=== PATIENT | male | born 1985 | race Two or more races ===

== ENCOUNTER 2019-07-10 18:31 | Inpatient (IN) | payer MEDICAID ==
[~2019-07-10] VITALS: Ht 167.6 cm; Wt 104.8 kg
[2019-07-10] MEDS ORDERED: QUET200T PO (19:52)
[2019-07-10] MEDS ORDERED: RISP2TAB23 PO (19:52)
[2019-07-10] MEDS ORDERED: MIRT-89 PO (19:52)
[2019-07-10] MEDS ORDERED: LORazepam 2 MG TABLET PO PRN (20:15)
[2019-07-10] MEDS ORDERED: ZOLPIDEM TARTRATE 10 MG TABLET PO PRN (20:15)
[2019-07-10] MEDS ORDERED: HALOPERIDOL 5 MG TABLET PO PRN (20:15)
[2019-07-10 20:30] VITALS: BP 137/81
[2019-07-11 08:05] LABS: BASOPHILS % (AUTO) 0.4 % (0.0-2.0); EOSINOPHILS % (AUTO) 1.1 % (1.0-6.0); HEMATOCRIT 40.8 % (41-53); HEMOGLOBIN 13.4 g/dL (13.5-17.5); LYMPHOCYTES # (AUTO) 1.3 K/uL (1.0-4.8); LYMPHOCYTES % (AUTO) 13.8 % (22.0-44.0); MEAN CORPUSCULAR HEMOGLOBIN 26.7 pg (26.0-34.0); MEAN CORPUSCULAR HGB CONC 32.9 G/dL (31.0-37.0); MEAN CORPUSCULAR VOLUME 81 fL (80-100); MONOCYTES # (AUTO) 0.9 K/uL (0.1-1.0); MONOCYTES % (AUTO) 9.6 % (2.0-9.0); NEUTROPHILS % (AUTO) 75.1 % (40.0-70.0); PLATELET COUNT (AUTO) 361 K/uL (150-450); RED BLOOD CELL COUNT(AUTO) 5.03 MIL/uL (4.50-5.90)
[2019-07-11 08:21] VITALS: BP 122/66
[2019-07-11 08:28] LABS: HEMOGLOBIN A1C 5.8 % (3.8-5.6)
[2019-07-11 08:42] LABS: ALANINE AMINOTRANSFERASE 41 U/L (12-78); ALBUMIN 3.8 g/dL (3.4-5.0); ALKALINE PHOSPHATASE 86 U/L (46-116); ANION GAP 11 mmol/L (8-16); ASPARTATE AMINOTRANSFERASE 43 U/L (15-37); BILIRUBIN,TOTAL 0.5 mg/dL (0.1-1.0); CARBON DIOXIDE 26 mmol/L (22-29); CHLORIDE 105 mmol/L (98-107); CHOLESTEROL 161 mg/dL (131-200); CREATININE 0.87 mg/dL (0.60-1.30); FREE T4 (FREE THYROXINE) 1.19 ng/dL (0.76-1.46); GLOMERULAR FILTR. RATE CALC > 60 mL/min (>60); GLUCOSE,RANDOM 99 mg/dL (70-110); POTASSIUM 4.1 mmol/L (3.5-5.1); SODIUM SERUM 142 mmol/L (136-145); THYROID STIMULATING HORMONE 3.53 uIU/mL (0.36-3.74); TOTAL PROTEIN, SERUM 7.6 g/dL (6.4-8.2); TRIGLYCERIDES 84 mg/dL (15-150); UREA NITROGEN, BLOOD 13 mg/dL (7-18)
[2019-07-11] MEDS ORDERED: ONDANSETRON HCL 4 MG TABLET PO PRN (08:45)
[2019-07-11] MEDS ORDERED: MAG HYDROX/AL HYDROX/SIMETH ES 30 ML SUSPENSION UDCUP PO PRN (08:45)
[2019-07-11] MEDS ORDERED: CloNIDine HCL 0.1 MG TABLET PO PRN (08:45)
[2019-07-11] MEDS ORDERED: IBUPROFEN 400 MG TABLET PO PRN (08:45)
[2019-07-11] MEDS ORDERED: GuaiFENesin/D-METHORPHAN [SUGAR-FREE] 200-20MG/10 ML SYRUP UDCUP PO PRN (08:45)
[2019-07-11] MEDS ORDERED: MAGNESIUM HYDROXIDE SUSPENSION 30 ML UDCUP PO PRN (08:45)
[2019-07-11] MEDS ORDERED: ALBUTEROL SULFATE HFA 90 MCG/PUFF 8 GM INHALER IH PRN (08:45)
[2019-07-11] MEDS ORDERED: LOPERAMIDE HCL 2 MG CAPSULE PO PRN (08:45)
[2019-07-11] MEDS ORDERED: NICOTINE 14 MG/24 HOUR PATCH TD PRN (08:45)
[2019-07-11] MEDS ORDERED: PETROLATUM,WHITE 28 GM JELLY TP PRN (08:45)
[2019-07-11] MEDS ORDERED: ACETAMINOPHEN 325 MG TABLET PO PRN (08:45)
[2019-07-11] MEDS ORDERED: DOCUSATE SODIUM 100 MG CAPSULE PO PRN (08:45)
[2019-07-11 08:52] LABS: CHOL/HDL RATIO 5.2 (4.2-7.3); HDL CHOLESTEROL 31 mg/dL (40-60); LDL CHOL (CALC.) 113 mg/dL (0-130)
[2019-07-11] MEDS: QUEtiapine FUMARATE 25 MG TABLET PO SCH ×2 (13:11→16:45)
[2019-07-11 15:56] VITALS: BP 132/66
[2019-07-11] MEDS: MIRTAZAPINE 15 MG TABLET PO SCH (21:49)
[2019-07-11] MEDS: RisperiDONE 2 MG TABLET PO SCH (21:49)
[2019-07-12 08:15] VITALS: BP 129/73
[2019-07-12] MEDS: QUEtiapine FUMARATE 25 MG TABLET PO SCH ×2 (08:47→16:10)
[2019-07-12 16:13] VITALS: BP 134/73
[2019-07-12] MEDS: RisperiDONE 2 MG TABLET PO SCH (20:46)
[2019-07-12] MEDS: MIRTAZAPINE 15 MG TABLET PO SCH (20:46)
[2019-07-13 05:44] VITALS: BP 141/78
[2019-07-13 08:20] VITALS: BP 125/90
[2019-07-13] MEDS: QUEtiapine FUMARATE 25 MG TABLET PO SCH (08:29)
[2019-07-13] MEDS ORDERED: RISP2TAB23 PO (11:10)
[2019-07-13] MEDS ORDERED: QUET25TA PO (11:10)
== END 2019-07-13 11:40 | disposition home or self-care (01) | DRG 750 ==
LOC: B3A 20:11
PROVIDERS: ADMIT Psychiatry & Neurology Psychiatry; ATTEND Psychiatry & Neurology Psychiatry
DX: F20.9 Schizophrenia, unspecified (principal); R45.850 Homicidal ideations; R45.851 Suicidal ideations; D64.9 Anemia, unspecified; F10.10 Alcohol abuse, uncomplicated; K59.00 Constipation, unspecified; Z91.5 Personal history of self-harm
CPT/HCPCS: 83036; 84439; 84443

== ENCOUNTER 2020-07-29 08:42 | Inpatient (IN) | payer BC, MEDICAID ==
[~2020-07-29] VITALS: Ht 167.6 cm; Wt 117.3 kg
[~2020-07-29 08:42] MED LIST: MIRT-89 PO; QUET25TA PO; RISP2TAB45 PO
[2020-07-29] MEDS ORDERED: SERT-158 PO (08:53)
[2020-07-29] MEDS ORDERED: OLAN2.5T29 PO (08:53)
[2020-07-29] MEDS ORDERED: QUET25TA PO (08:53)
[2020-07-29] MEDS ORDERED: LITH300C3 PO (08:53)
[2020-07-29 09:13] LABS: COVID AG,FIA SOURCE NASOPHARYNGEAL
[2020-07-29 09:15] LABS: BASOPHILS % (AUTO) 0.6 % (0.0-2.0); EOSINOPHILS % (AUTO) 0.4 % (1.0-6.0); HEMATOCRIT 41.7 % (41-53); HEMOGLOBIN 13.3 g/dL (13.5-17.5); LYMPHOCYTES # (AUTO) 1.9 K/uL (1.0-4.8); LYMPHOCYTES % (AUTO) 11.4 % (22.0-44.0); MEAN CORPUSCULAR HEMOGLOBIN 25.6 pg (26.0-34.0); MEAN CORPUSCULAR HGB CONC 31.9 G/dL (31.0-37.0); MEAN CORPUSCULAR VOLUME 80 fL (80-100); MONOCYTES # (AUTO) 1.4 K/uL (0.1-1.0); MONOCYTES % (AUTO) 8.2 % (2.0-9.0); NEUTROPHILS # (AUTO) 13.2 K/uL (1.8-7.7); NEUTROPHILS % (AUTO) 79.4 % (40.0-70.0); PLATELET COUNT (AUTO) 592 K/uL (150-450); RED BLOOD CELL COUNT(AUTO) 5.19 MIL/uL (4.50-5.90)
[2020-07-29 09:24] LABS: ANION GAP 14 mmol/L (8-16); CALCIUM, TOTAL 9.6 mg/dL (8.8-10.5); CARBON DIOXIDE 21 mmol/L (22-29); CHLORIDE 106 mmol/L (98-107); CREATININE 0.95 mg/dL (0.60-1.30); GLOMERULAR FILTR. RATE CALC > 60 mL/min (>60); GLUCOSE,RANDOM 86 mg/dL (70-110); POTASSIUM 3.7 mmol/L (3.5-5.1); SODIUM SERUM 141 mmol/L (136-145); UREA NITROGEN, BLOOD 6 mg/dL (7-18)
[2020-07-29 09:30] LABS: ALANINE AMINOTRANSFERASE 50 U/L (12-78); ALBUMIN 4.3 g/dL (3.4-5.0); ALKALINE PHOSPHATASE 117 U/L (46-116); ASPARTATE AMINOTRANSFERASE 22 U/L (15-37); BILIRUBIN,TOTAL 0.4 mg/dL (0.1-1.0); TOTAL PROTEIN, SERUM 8.6 g/dL (6.4-8.2)
[2020-07-29 09:32] LABS: AMPHET/METH SCREEN,URINE NEGATIVE (NEGATIVE); BARBITURATE SCREEN, URINE NEGATIVE (NEGATIVE); BENZODIAZEPINES SCREEN,URINE NEGATIVE (NEGATIVE); CANNABINOID SCREEN,URINE NEGATIVE (NEGATIVE); COCAINE SCREEN,URINE NEGATIVE (NEGATIVE); METHADONE SCREEN, URINE NEGATIVE (NEGATIVE); OPIATE SCREEN,URINE NEGATIVE (NEGATIVE)
[2020-07-29 09:33] LABS: PHENCYCLIDINE SCREEN,URINE NEGATIVE (NEGATIVE)
[2020-07-29] MEDS ORDERED: ZOLPIDEM TARTRATE 10 MG TABLET PO PRN (10:00)
[2020-07-29] MEDS ORDERED: LORazepam 2 MG TABLET PO PRN (10:00)
[2020-07-29] MEDS: HALOPERIDOL 5 MG TABLET PO PRN ×2 (13:12→17:30)
[2020-07-29 13:41] VITALS: BP 137/76
[2020-07-29 16:10] VITALS: BP 133/70
[2020-07-30] VITALS: BP 127/61
[2020-07-30] MEDS ORDERED: LOPERAMIDE HCL 2 MG CAPSULE PO PRN (07:30)
[2020-07-30] MEDS ORDERED: CloNIDine HCL 0.1 MG TABLET PO PRN (07:30)
[2020-07-30] MEDS ORDERED: DOCUSATE SODIUM 100 MG CAPSULE PO PRN (07:30)
[2020-07-30] MEDS ORDERED: NICOTINE 14 MG/24 HOUR PATCH TD PRN (07:30)
[2020-07-30] MEDS ORDERED: MAGNESIUM HYDROXIDE SUSPENSION 30 ML UDCUP PO PRN (07:30)
[2020-07-30] MEDS ORDERED: GuaiFENesin/D-METHORPHAN [SUGAR-FREE] 200-20MG/10 ML SYRUP UDCUP PO PRN (07:30)
[2020-07-30] MEDS ORDERED: ONDANSETRON HCL 4 MG TABLET PO PRN (07:30)
[2020-07-30] MEDS ORDERED: IBUPROFEN 400 MG TABLET PO PRN (07:30)
[2020-07-30] MEDS ORDERED: MAG HYDROX/AL HYDROX/SIMETH ES 30 ML SUSPENSION UDCUP PO PRN (07:30)
[2020-07-30] MEDS ORDERED: PETROLATUM,WHITE 28 GM JELLY TP PRN (07:30)
[2020-07-30] MEDS ORDERED: ALBUTEROL SULFATE HFA 90 MCG/PUFF 8 GM INHALER IH PRN (07:30)
[2020-07-30] MEDS ORDERED: ACETAMINOPHEN 325 MG TABLET PO PRN (07:30)
[2020-07-30 08:13] VITALS: BP 107/60
[2020-07-30 09:15] LABS: CHOL/HDL RATIO 5.1 (4.2-7.3)
[2020-07-30] MEDS ORDERED: LEVO100 PO (12:27)
[2020-07-30] MEDS: SERTRALINE HCL 100 MG TABLET PO SCH (13:17)
[2020-07-30] MEDS: LITHIUM CARBONATE 300 MG CAPSULE PO SCH (13:17)
[2020-07-30 16:27] VITALS: BP 128/76
[2020-07-30] MEDS: LITHIUM CARBONATE 600 MG CAPSULE PO SCH (20:50)
[2020-07-30] MEDS: QUEtiapine FUMARATE 300 MG TABLET PO SCH (20:50)
[2020-07-31 00:23] VITALS: BP 121/69
[2020-07-31 08:42] VITALS: BP 120/65
[2020-07-31] MEDS: SERTRALINE HCL 100 MG TABLET PO SCH (09:09)
[2020-07-31] MEDS: LITHIUM CARBONATE 300 MG CAPSULE PO SCH (09:09)
[2020-07-31 16:20] VITALS: BP 133/80
[2020-07-31] MEDS: QUEtiapine FUMARATE 300 MG TABLET PO SCH (20:26)
[2020-07-31] MEDS: LITHIUM CARBONATE 600 MG CAPSULE PO SCH (20:26)
[2020-08-01 00:32] VITALS: BP 120/72
[2020-08-01 08:05] VITALS: BP 110/66
[2020-08-01] MEDS: SERTRALINE HCL 100 MG TABLET PO SCH (08:55)
[2020-08-01] MEDS: LITHIUM CARBONATE 300 MG CAPSULE PO SCH (08:55)
[2020-08-01] MEDS ORDERED: LITH600C5 PO (11:01)
[2020-08-01] MEDS ORDERED: LITH300C3 PO (11:01)
[2020-08-01] MEDS ORDERED: QUET300T2 PO (11:02)
[2020-08-01] MEDS ORDERED: SERT-162 PO (11:02)
== END 2020-08-01 11:50 | disposition home or self-care (01) | DRG 750 ==
LOC: EMS 08:49 → B2S 10:37
PROVIDERS: ADMIT Psychiatry & Neurology Child & Adolescent Psychiatry; ATTEND Psychiatry & Neurology Child & Adolescent Psychiatry
DX: F25.1 Schizoaffective disorder, depressive type (principal); R45.851 Suicidal ideations; Z68.41 Body mass index [BMI] 40.0-44.9, adult; D72.829 Elevated white blood cell count, unspecified; Z20.822 Contact with and (suspected) exposure to COVID-19; E03.9 Hypothyroidism, unspecified; E66.9 Obesity, unspecified; F10.10 Alcohol abuse, uncomplicated; F41.9 Anxiety disorder, unspecified; Z79.899 Other long term (current) drug therapy
CPT/HCPCS: 80053; 80061; 85025; 99285; G0480

== ENCOUNTER 2020-09-12 03:40 | Inpatient (IN) | payer BC, MEDICAID ==
[~2020-09-12] VITALS: Ht 167.6 cm; Wt 115.2 kg
[~2020-09-12 03:40] MED LIST changes: +LITH300C3 PO; +LITH600C5 PO; -MIRT-89 PO; -QUET25TA PO; +QUET300T2 PO; -RISP2TAB45 PO; +SERT-162 PO
[2020-09-12] MEDS ORDERED: ZOLPIDEM TARTRATE 10 MG TABLET PO PRN (04:45)
[2020-09-12 06:03] LABS: BASOPHILS % (AUTO) 0.8 % (0.0-2.0); EOSINOPHILS % (AUTO) 0.5 % (1.0-6.0); HEMATOCRIT 39.7 % (41-53); HEMOGLOBIN 12.7 g/dL (13.5-17.5); LYMPHOCYTES # (AUTO) 1.7 K/uL (1.0-4.8); LYMPHOCYTES % (AUTO) 14.9 % (22.0-44.0); MEAN CORPUSCULAR HEMOGLOBIN 25.1 pg (26.0-34.0); MEAN CORPUSCULAR HGB CONC 31.8 G/dL (31.0-37.0); MEAN CORPUSCULAR VOLUME 79 fL (80-100); MONOCYTES % (AUTO) 8.6 % (2.0-9.0); NEUTROPHILS # (AUTO) 8.7 K/uL (1.8-7.7); NEUTROPHILS % (AUTO) 75.2 % (40.0-70.0); PLATELET COUNT (AUTO) 480 K/uL (150-450); RED BLOOD CELL COUNT(AUTO) 5.03 MIL/uL (4.50-5.90); RED CELL DISTRIBUTION WIDTH 17.2 % (11.5-14.5)
[2020-09-12 06:04] LABS: COVID AG,FIA SOURCE NASOPHARYNGEAL
[2020-09-12 06:12] LABS: ANION GAP 11 mmol/L (8-16); CALCIUM, TOTAL 9.2 mg/dL (8.8-10.5); CARBON DIOXIDE 24 mmol/L (22-29); CHLORIDE 104 mmol/L (98-107); CREATININE 0.75 mg/dL (0.60-1.30); GLOMERULAR FILTR. RATE CALC > 60 mL/min (>60); GLUCOSE,RANDOM 100 mg/dL (70-110); POTASSIUM 3.8 mmol/L (3.5-5.1); SODIUM SERUM 139 mmol/L (136-145); UREA NITROGEN, BLOOD 9 mg/dL (7-18)
[2020-09-12 06:17] LABS: ALANINE AMINOTRANSFERASE 69 U/L (12-78); ALBUMIN 4.3 g/dL (3.4-5.0); ALKALINE PHOSPHATASE 86 U/L (46-116); ASPARTATE AMINOTRANSFERASE 30 U/L (15-37); BILIRUBIN,TOTAL 0.3 mg/dL (0.1-1.0); TOTAL PROTEIN, SERUM 8.3 g/dL (6.4-8.2)
[2020-09-12 06:55] LABS: APPEARANCE,URINE TURBID (CLEAR); BILIRUBIN,URINE NEGATIVE (NEGATIVE); GLUCOSE, URINE (UA) NEGATIVE (NEGATIVE); KETONES,URINE TRACE mg/dL (NEGATIVE); LEUKOCYTE ESTERASE ,URINE NEGATIVE (NEGATIVE); NITRATE,URINE NEGATIVE (NEGATIVE); OCCULT BLOOD,URINE NEGATIVE (NEGATIVE); PH,URINE 5.5 (5.0-8.0); PROTEIN,URINE NEGATIVE (NEGATIVE); UROBILINOGEN,URINE 0.2 mg/dL (<=1.0)
[2020-09-12 07:00] LABS: AMPHET/METH SCREEN,URINE NEGATIVE (NEGATIVE); BARBITURATE SCREEN, URINE NEGATIVE (NEGATIVE); BENZODIAZEPINES SCREEN,URINE NEGATIVE (NEGATIVE); CANNABINOID SCREEN,URINE NEGATIVE (NEGATIVE); COCAINE SCREEN,URINE POSITIVE (NEGATIVE); METHADONE SCREEN, URINE NEGATIVE (NEGATIVE); OPIATE SCREEN,URINE NEGATIVE (NEGATIVE)
[2020-09-12 07:01] LABS: PHENCYCLIDINE SCREEN,URINE NEGATIVE (NEGATIVE)
[2020-09-12] MEDS: LORazepam 2 MG TABLET PO PRN ×2 (09:57→20:26)
[2020-09-12] MEDS: HALOPERIDOL 5 MG TABLET PO PRN (09:57)
[2020-09-12 10:30] VITALS: BP 139/83
[2020-09-12] MEDS: HALOPERIDOL 10 MG TABLET PO SCH (16:57)
[2020-09-12 17:37] VITALS: BP 112/67
[2020-09-12] MEDS: LITHIUM CARBONATE 600 MG CAPSULE PO SCH (20:26)
[2020-09-13 05:15] VITALS: BP 132/64
[2020-09-13] MEDS ORDERED: PETROLATUM,WHITE 28 GM JELLY TP PRN (07:15)
[2020-09-13] MEDS ORDERED: MAGNESIUM HYDROXIDE SUSPENSION 30 ML UDCUP PO PRN (07:15)
[2020-09-13] MEDS ORDERED: CloNIDine HCL 0.1 MG TABLET PO PRN (07:15)
[2020-09-13] MEDS ORDERED: MAG HYDROX/AL HYDROX/SIMETH ES 30 ML SUSPENSION UDCUP PO PRN (07:15)
[2020-09-13] MEDS ORDERED: NICOTINE 14 MG/24 HOUR PATCH TD PRN (07:15)
[2020-09-13] MEDS ORDERED: ALBUTEROL SULFATE HFA 90 MCG/PUFF 8 GM INHALER IH PRN (07:15)
[2020-09-13] MEDS ORDERED: LOPERAMIDE HCL 2 MG CAPSULE PO PRN (07:15)
[2020-09-13] MEDS ORDERED: ACETAMINOPHEN 325 MG TABLET PO PRN (07:15)
[2020-09-13] MEDS ORDERED: DOCUSATE SODIUM 100 MG CAPSULE PO PRN (07:15)
[2020-09-13] MEDS ORDERED: GuaiFENesin/D-METHORPHAN [SUGAR-FREE] 200-20MG/10 ML SYRUP UDCUP PO PRN (07:15)
[2020-09-13] MEDS ORDERED: ONDANSETRON HCL 4 MG TABLET PO PRN (07:15)
[2020-09-13 08:23] VITALS: BP 135/70
[2020-09-13] MEDS: LITHIUM CARBONATE 300 MG CAPSULE PO SCH (08:38)
[2020-09-13] MEDS: IBUPROFEN 400 MG TABLET PO PRN (08:38)
[2020-09-13] MEDS: BENZTROPINE MESYLATE 1 MG TABLET PO SCH (08:39)
[2020-09-13] MEDS: HALOPERIDOL 10 MG TABLET PO SCH ×2 (08:39→20:39)
[2020-09-13] MEDS: HALOPERIDOL 5 MG TABLET PO PRN (10:25)
[2020-09-13] MEDS: LORazepam 2 MG TABLET PO PRN ×2 (10:25→15:54)
[2020-09-13 16:15] VITALS: BP 118/65
[2020-09-13] MEDS: LITHIUM CARBONATE 600 MG CAPSULE PO SCH (20:39)
[2020-09-14] MEDS: LORazepam 2 MG TABLET PO PRN ×2 (08:20→16:59)
[2020-09-14] MEDS: HALOPERIDOL 5 MG TABLET PO PRN ×2 (08:20→17:01)
[2020-09-14] MEDS: IBUPROFEN 400 MG TABLET PO PRN (08:20)
[2020-09-14] MEDS: BENZTROPINE MESYLATE 1 MG TABLET PO SCH (08:53)
[2020-09-14] MEDS: LITHIUM CARBONATE 300 MG CAPSULE PO SCH (08:53)
[2020-09-14] MEDS: HALOPERIDOL 10 MG TABLET PO SCH ×2 (08:53→20:50)
[2020-09-14] MEDS: LITHIUM CARBONATE 600 MG CAPSULE PO SCH (20:51)
[2020-09-15] MEDS: HALOPERIDOL 5 MG TABLET PO PRN (08:25)
[2020-09-15] MEDS: IBUPROFEN 400 MG TABLET PO PRN (08:25)
[2020-09-15] MEDS: LORazepam 2 MG TABLET PO PRN (08:25)
[2020-09-15] MEDS: HALOPERIDOL 10 MG TABLET PO SCH (08:52)
[2020-09-15] MEDS: BENZTROPINE MESYLATE 1 MG TABLET PO SCH (08:52)
[2020-09-15] MEDS: LITHIUM CARBONATE 300 MG CAPSULE PO SCH (08:52)
[2020-09-15] MEDS ORDERED: BENZ1TAB10 PO (10:32)
[2020-09-15] MEDS ORDERED: HALO10 PO (10:33)
== END 2020-09-15 11:00 | disposition home or self-care (01) | DRG 750 ==
LOC: EMS 03:43 → B3A 08:00
DX: F25.1 Schizoaffective disorder, depressive type (principal); R45.851 Suicidal ideations; F14.10 Cocaine abuse, uncomplicated; Z20.822 Contact with and (suspected) exposure to COVID-19; F41.9 Anxiety disorder, unspecified; F10.10 Alcohol abuse, uncomplicated; Y90.9 Presence of alcohol in blood, level not specified; F19.10 Other psychoactive substance abuse, uncomplicated; D72.829 Elevated white blood cell count, unspecified; D47.3 Essential (hemorrhagic) thrombocythemia; E66.9 Obesity, unspecified; D64.9 Anemia, unspecified; Z91.5 Personal history of self-harm; Z68.41 Body mass index [BMI] 40.0-44.9, adult
CPT/HCPCS: 80053; 80178; 81003; 85025; 99285; G0480

== ENCOUNTER 2020-12-13 21:03 | Inpatient (IN) | payer BC, MEDICAID ==
[~2020-12-13] VITALS: Ht 167.6 cm; Wt 111.6 kg
[~2020-12-13 21:03] MED LIST changes: +BENZ1TAB10 PO; +HALO10 PO; -QUET300T2 PO; -SERT-162 PO
[2020-12-13 21:52] LABS: COVID AG,FIA SOURCE NASOPHARYNGEAL
[2020-12-13 21:54] LABS: BASOPHILS % (AUTO) 0.7 % (0.0-2.0); EOSINOPHILS % (AUTO) 0.3 % (1.0-6.0); HEMATOCRIT 41.7 % (41-53); HEMOGLOBIN 13.5 g/dL (13.5-17.5); LYMPHOCYTES % (AUTO) 15.4 % (22.0-44.0); MEAN CORPUSCULAR HGB CONC 32.5 G/dL (31.0-37.0); MEAN CORPUSCULAR VOLUME 80 fL (80-100); MONOCYTES # (AUTO) 0.6 K/uL (0.1-1.0); MONOCYTES % (AUTO) 4.4 % (2.0-9.0); NEUTROPHILS % (AUTO) 79.2 % (40.0-70.0); PLATELET COUNT (AUTO) 561 K/uL (150-450); RED BLOOD CELL COUNT(AUTO) 5.21 MIL/uL (4.50-5.90); RED CELL DISTRIBUTION WIDTH 18.5 % (11.5-14.5)
[2020-12-13] MEDS ORDERED: OLANZapine 5 MG RAPDIS TABLET PO PRN (22:00)
[2020-12-13] MEDS ORDERED: LORazepam 2 MG TABLET PO PRN (22:00)
[2020-12-13] MEDS ORDERED: ZOLPIDEM TARTRATE 10 MG TABLET PO PRN (22:00)
[2020-12-13 22:04] LABS: ANION GAP 13 mmol/L (8-16); CALCIUM, TOTAL 9.6 mg/dL (8.8-10.5); CARBON DIOXIDE 25 mmol/L (22-29); CHLORIDE 106 mmol/L (98-107); CREATININE 0.87 mg/dL (0.60-1.30); GLOMERULAR FILTR. RATE CALC > 60 mL/min (>60); GLUCOSE,RANDOM 102 mg/dL (70-110); SODIUM SERUM 144 mmol/L (136-145); UREA NITROGEN, BLOOD 9 mg/dL (7-18)
[2020-12-13 22:18] LABS: ALANINE AMINOTRANSFERASE 71 U/L (12-78); ALBUMIN 4.3 g/dL (3.4-5.0); ALKALINE PHOSPHATASE 106 U/L (46-116); ASPARTATE AMINOTRANSFERASE 29 U/L (15-37); BILIRUBIN,TOTAL 0.3 mg/dL (0.1-1.0); TOTAL PROTEIN, SERUM 8.8 g/dL (6.4-8.2)
[2020-12-13 22:20] LABS: LITHIUM < 0.20 mmol/L (0.60-1.20)
[2020-12-13 22:29] LABS: APPEARANCE,URINE CLEAR (CLEAR); BILIRUBIN,URINE NEGATIVE (NEGATIVE); GLUCOSE, URINE (UA) NEGATIVE (NEGATIVE); KETONES,URINE TRACE mg/dL (NEGATIVE); LEUKOCYTE ESTERASE ,URINE NEGATIVE (NEGATIVE); NITRATE,URINE NEGATIVE (NEGATIVE); OCCULT BLOOD,URINE NEGATIVE (NEGATIVE); PROTEIN,URINE NEGATIVE (NEGATIVE); UROBILINOGEN,URINE 0.2 mg/dL (<=1.0)
[2020-12-13 22:32] LABS: AMPHET/METH SCREEN,URINE NEGATIVE (NEGATIVE); BARBITURATE SCREEN, URINE NEGATIVE (NEGATIVE); BENZODIAZEPINES SCREEN,URINE NEGATIVE (NEGATIVE); CANNABINOID SCREEN,URINE NEGATIVE (NEGATIVE); COCAINE SCREEN,URINE POSITIVE (NEGATIVE); METHADONE SCREEN, URINE NEGATIVE (NEGATIVE); OPIATE SCREEN,URINE NEGATIVE (NEGATIVE)
[2020-12-13 22:33] LABS: PHENCYCLIDINE SCREEN,URINE NEGATIVE (NEGATIVE)
[2020-12-14 00:39] LABS: CHOL/HDL RATIO 5.7 (4.2-7.3); CHOLESTEROL 198 mg/dL (131-200); HDL CHOLESTEROL 35 mg/dL (40-60); LDL CHOL (CALC.) 146 mg/dL (0-130); TRIGLYCERIDES 86 mg/dL (15-150)
[2020-12-14 09:34] VITALS: BP 157/97
[2020-12-14 09:57] VITALS: BP 157/97
[2020-12-14] MEDS ORDERED: PALIPERIDONE PALMITATE 234 MG/1.5 ML SYRINGE IM ONE (11:15)
[2020-12-14] MEDS ORDERED: GuaiFENesin/D-METHORPHAN [SUGAR-FREE] 200-20MG/10 ML SYRUP UDCUP PO PRN (11:15)
[2020-12-14] MEDS ORDERED: MAGNESIUM HYDROXIDE SUSPENSION 30 ML UDCUP PO PRN (11:15)
[2020-12-14] MEDS ORDERED: ACETAMINOPHEN 325 MG TABLET PO PRN (11:15)
[2020-12-14] MEDS ORDERED: TUBERCULIN, PURIFIED PROTEIN DERIVATIVE 5 TU/0.1 ML SYRINGE ID ONE (11:15)
[2020-12-14] MEDS ORDERED: LOPERAMIDE HCL 2 MG CAPSULE PO PRN (11:15)
[2020-12-14] MEDS ORDERED: MAG HYDROX/AL HYDROX/SIMETH ES 30 ML SUSPENSION UDCUP PO PRN (11:15)
[2020-12-14] MEDS ORDERED: HydrOXYzine PAMOATE 50 MG CAPSULE PO PRN (11:15)
[2020-12-14] MEDS ORDERED: PROMETHAZINE HCL 25 MG TABLET PO PRN (11:15)
[2020-12-14] MEDS ORDERED: QUEtiapine FUMARATE 100 MG TABLET PO PRN (13:30)
[2020-12-14] MEDS: THIAMINE 100 MG TABLET PO SCH (16:35)
[2020-12-14] MEDS: QUEtiapine FUMARATE 200 MG TABLET PO SCH (20:16)
[2020-12-14] MEDS: MELATONIN 5 MG TABLET PO SCH (20:16)
[2020-12-14] MEDS: LITHIUM CARBONATE 600 MG CAPSULE PO SCH (20:17)
[2020-12-14] MEDS ORDERED: OLANZapine 5 MG RAPDIS TABLET PO SCH (21:00)
[2020-12-15 07:15] LABS: BASOPHILS % (AUTO) 0.9 % (0.0-2.0); EOSINOPHILS % (AUTO) 2.6 % (1.0-6.0); HEMATOCRIT 39.7 % (41-53); HEMOGLOBIN 12.7 g/dL (13.5-17.5); LYMPHOCYTES # (AUTO) 1.8 K/uL (1.0-4.8); LYMPHOCYTES % (AUTO) 23.1 % (22.0-44.0); MEAN CORPUSCULAR HEMOGLOBIN 25.7 pg (26.0-34.0); MEAN CORPUSCULAR HGB CONC 31.9 G/dL (31.0-37.0); MEAN CORPUSCULAR VOLUME 81 fL (80-100); MONOCYTES # (AUTO) 0.8 K/uL (0.1-1.0); MONOCYTES % (AUTO) 9.7 % (2.0-9.0); NEUTROPHILS # (AUTO) 4.9 K/uL (1.8-7.7); NEUTROPHILS % (AUTO) 63.7 % (40.0-70.0); PLATELET COUNT (AUTO) 409 K/uL (150-450); RED BLOOD CELL COUNT(AUTO) 4.93 MIL/uL (4.50-5.90); RED CELL DISTRIBUTION WIDTH 18.7 % (11.5-14.5)
[2020-12-15 08:15] LABS: CHOL/HDL RATIO 5.4 (4.2-7.3); THYROID STIMULATING HORMONE 3.68 uIU/mL (0.36-3.74)
[2020-12-15 08:50] VITALS: BP 115/63
[2020-12-15] MEDS ORDERED: FLUoxetine HCL 20 MG CAPSULE PO SCH (09:00)
[2020-12-15] MEDS: FOLIC ACID 1 MG TABLET PO SCH (09:02)
[2020-12-15] MEDS: LITHIUM CARBONATE 300 MG CAPSULE PO SCH (09:02)
[2020-12-15] MEDS: MULTIVITAMINS WITH MINERALS, THERAPEUTIC TABLET PO SCH (09:02)
[2020-12-15] MEDS: OMEGA-3/DHA/EPA/FISH OIL 1,000 MG CAPSULE PO SCH (09:02)
[2020-12-15] MEDS: NALTREXONE HCL 50 MG TABLET PO SCH (09:03)
[2020-12-15] MEDS: SERTRALINE HCL 100 MG TABLET PO SCH (09:03)
[2020-12-15] MEDS: THIAMINE 100 MG TABLET PO SCH ×2 (09:04→16:23)
[2020-12-15] MEDS ORDERED: INFLUENZA VIRUS VACCINE QVS 2021-22 (6MO+)/PF 60 MCG/0.5 ML SYRINGE IM. ONE (10:45)
[2020-12-15] MEDS: LITHIUM CARBONATE 600 MG CAPSULE PO SCH (20:10)
[2020-12-15] MEDS: MELATONIN 5 MG TABLET PO SCH (20:11)
[2020-12-15] MEDS: QUEtiapine FUMARATE 200 MG TABLET PO SCH (20:11)
[2020-12-15] MEDS ORDERED: QUEtiapine FUMARATE 200 MG TABLET PO SCH (21:00)
[2020-12-15] MEDS ORDERED: QUEtiapine FUMARATE 100 MG TABLET PO PRN (21:00)
[2020-12-16 08:57] VITALS: BP 115/61
[2020-12-16] MEDS: SERTRALINE HCL 100 MG TABLET PO SCH (09:49)
[2020-12-16] MEDS: THIAMINE 100 MG TABLET PO SCH ×2 (09:49→16:59)
[2020-12-16] MEDS: OMEGA-3/DHA/EPA/FISH OIL 1,000 MG CAPSULE PO SCH (09:49)
[2020-12-16] MEDS: QUEtiapine FUMARATE 25 MG TABLET PO SCH ×3 (09:49→16:59)
[2020-12-16] MEDS: NALTREXONE HCL 50 MG TABLET PO SCH (09:49)
[2020-12-16] MEDS: MULTIVITAMINS WITH MINERALS, THERAPEUTIC TABLET PO SCH (09:49)
[2020-12-16] MEDS: LITHIUM CARBONATE 300 MG CAPSULE PO SCH (09:49)
[2020-12-16] MEDS: FOLIC ACID 1 MG TABLET PO SCH (09:49)
[2020-12-16 17:03] VITALS: BP 140/70
[2020-12-16] MEDS: MELATONIN 5 MG TABLET PO SCH (21:01)
[2020-12-16] MEDS: QUEtiapine FUMARATE 200 MG TABLET PO SCH (21:01)
[2020-12-16] MEDS: LITHIUM CARBONATE 600 MG CAPSULE PO SCH (21:01)
[2020-12-17 08:00] VITALS: BP 120/66
[2020-12-17] MEDS: FOLIC ACID 1 MG TABLET PO SCH (08:38)
[2020-12-17] MEDS: NALTREXONE HCL 50 MG TABLET PO SCH (08:38)
[2020-12-17] MEDS: SERTRALINE HCL 100 MG TABLET PO SCH (08:38)
[2020-12-17] MEDS: OMEGA-3/DHA/EPA/FISH OIL 1,000 MG CAPSULE PO SCH (08:38)
[2020-12-17] MEDS: THIAMINE 100 MG TABLET PO SCH ×2 (08:39→16:18)
[2020-12-17] MEDS: QUEtiapine FUMARATE 25 MG TABLET PO SCH ×3 (08:39→16:18)
[2020-12-17] MEDS: MULTIVITAMINS WITH MINERALS, THERAPEUTIC TABLET PO SCH (08:39)
[2020-12-17] MEDS: LITHIUM CARBONATE 300 MG CAPSULE PO SCH (10:05)
[2020-12-17 16:33] VITALS: BP 128/78
[2020-12-17] MEDS: MELATONIN 5 MG TABLET PO SCH (20:10)
[2020-12-17] MEDS: LITHIUM CARBONATE 600 MG CAPSULE PO SCH (20:10)
[2020-12-17] MEDS: QUEtiapine FUMARATE 200 MG TABLET PO SCH (20:10)
[2020-12-18] MEDS: NALTREXONE HCL 50 MG TABLET PO SCH (08:56)
[2020-12-18] MEDS: LITHIUM CARBONATE 300 MG CAPSULE PO SCH (08:56)
[2020-12-18] MEDS: MULTIVITAMINS WITH MINERALS, THERAPEUTIC TABLET PO SCH (08:56)
[2020-12-18] MEDS: SERTRALINE HCL 100 MG TABLET PO SCH (08:56)
[2020-12-18] MEDS: OMEGA-3/DHA/EPA/FISH OIL 1,000 MG CAPSULE PO SCH (08:56)
[2020-12-18] MEDS: FOLIC ACID 1 MG TABLET PO SCH (08:57)
[2020-12-18] MEDS: THIAMINE 100 MG TABLET PO SCH ×2 (08:57→16:51)
[2020-12-18] MEDS: QUEtiapine FUMARATE 25 MG TABLET PO SCH ×3 (08:57→16:51)
[2020-12-18] MEDS ORDERED: PALIPERIDONE PALMITATE 156 MG/ML SYRINGE IM ONE (09:00)
[2020-12-18 09:50] VITALS: BP 100/63
[2020-12-18 16:00] VITALS: BP 140/89
[2020-12-18] MEDS: LITHIUM CARBONATE 600 MG CAPSULE PO SCH (20:29)
[2020-12-18] MEDS: MELATONIN 5 MG TABLET PO SCH (20:29)
[2020-12-18] MEDS: QUEtiapine FUMARATE 300 MG TABLET PO SCH (20:29)
[2020-12-19] MEDS: MULTIVITAMINS WITH MINERALS, THERAPEUTIC TABLET PO SCH (08:47)
[2020-12-19] MEDS: OMEGA-3/DHA/EPA/FISH OIL 1,000 MG CAPSULE PO SCH (08:47)
[2020-12-19] MEDS: LITHIUM CARBONATE 300 MG CAPSULE PO SCH (08:47)
[2020-12-19] MEDS: THIAMINE 100 MG TABLET PO SCH ×2 (08:47→16:07)
[2020-12-19] MEDS: FOLIC ACID 1 MG TABLET PO SCH (08:47)
[2020-12-19] MEDS: NALTREXONE HCL 50 MG TABLET PO SCH (08:47)
[2020-12-19] MEDS: SERTRALINE HCL 100 MG TABLET PO SCH (08:47)
[2020-12-19] MEDS: QUEtiapine FUMARATE 25 MG TABLET PO SCH ×4 (08:49→20:23)
[2020-12-19 08:55] LABS: COVID AG,FIA SOURCE NASOPHARYNGEAL
[2020-12-19 16:19] VITALS: BP 123/72
[2020-12-19] MEDS: MELATONIN 5 MG TABLET PO SCH (20:23)
[2020-12-19] MEDS: LITHIUM CARBONATE 600 MG CAPSULE PO SCH (20:24)
[2020-12-19] MEDS: QUEtiapine FUMARATE 300 MG TABLET PO SCH (20:24)
[2020-12-20] MEDS: OMEGA-3/DHA/EPA/FISH OIL 1,000 MG CAPSULE PO SCH (08:28)
[2020-12-20] MEDS: SERTRALINE HCL 100 MG TABLET PO SCH (08:28)
[2020-12-20] MEDS: FOLIC ACID 1 MG TABLET PO SCH (08:29)
[2020-12-20] MEDS: MULTIVITAMINS WITH MINERALS, THERAPEUTIC TABLET PO SCH (08:29)
[2020-12-20] MEDS: NALTREXONE HCL 50 MG TABLET PO SCH (08:29)
[2020-12-20] MEDS: THIAMINE 100 MG TABLET PO SCH ×2 (08:29→16:07)
[2020-12-20] MEDS: LITHIUM CARBONATE 300 MG CAPSULE PO SCH (08:29)
[2020-12-20 09:21] VITALS: BP 104/59
[2020-12-20] MEDS: QUEtiapine FUMARATE 25 MG TABLET PO SCH ×2 (12:50→16:07)
[2020-12-20 16:48] VITALS: BP 140/90
[2020-12-20] MEDS: LITHIUM CARBONATE 600 MG CAPSULE PO SCH (20:19)
[2020-12-20] MEDS: MELATONIN 5 MG TABLET PO SCH (20:19)
[2020-12-20] MEDS: QUEtiapine FUMARATE 300 MG TABLET PO SCH (20:19)
[2020-12-21] MEDS: NALTREXONE HCL 50 MG TABLET PO SCH (08:19)
[2020-12-21] MEDS: THIAMINE 100 MG TABLET PO SCH ×2 (08:19→16:21)
[2020-12-21] MEDS: OMEGA-3/DHA/EPA/FISH OIL 1,000 MG CAPSULE PO SCH (08:19)
[2020-12-21] MEDS: MULTIVITAMINS WITH MINERALS, THERAPEUTIC TABLET PO SCH (08:19)
[2020-12-21] MEDS: FOLIC ACID 1 MG TABLET PO SCH (08:19)
[2020-12-21] MEDS: QUEtiapine FUMARATE 25 MG TABLET PO SCH ×3 (08:20→16:21)
[2020-12-21] MEDS: SERTRALINE HCL 100 MG TABLET PO SCH (08:20)
[2020-12-21] MEDS: LITHIUM CARBONATE 300 MG CAPSULE PO SCH (08:20)
[2020-12-21 08:39] VITALS: BP 130/87
[2020-12-21 16:15] VITALS: BP 132/71
[2020-12-21] MEDS: LITHIUM CARBONATE 600 MG CAPSULE PO SCH (20:20)
[2020-12-21] MEDS: MELATONIN 5 MG TABLET PO SCH (20:20)
[2020-12-21] MEDS: QUEtiapine FUMARATE 300 MG TABLET PO SCH (20:20)
[2020-12-22] MEDS: OMEGA-3/DHA/EPA/FISH OIL 1,000 MG CAPSULE PO SCH (08:53)
[2020-12-22] MEDS: LITHIUM CARBONATE 300 MG CAPSULE PO SCH (08:53)
[2020-12-22] MEDS: NALTREXONE HCL 50 MG TABLET PO SCH (08:53)
[2020-12-22] MEDS: FOLIC ACID 1 MG TABLET PO SCH (08:53)
[2020-12-22] MEDS: SERTRALINE HCL 100 MG TABLET PO SCH (08:53)
[2020-12-22] MEDS: THIAMINE 100 MG TABLET PO SCH ×2 (08:53→16:17)
[2020-12-22] MEDS: QUEtiapine FUMARATE 25 MG TABLET PO SCH ×3 (08:53→16:17)
[2020-12-22] MEDS: MULTIVITAMINS WITH MINERALS, THERAPEUTIC TABLET PO SCH (08:53)
[2020-12-22 09:14] VITALS: BP 130/66
[2020-12-22 11:20] VITALS: BP 110/74
[2020-12-22 16:00] VITALS: BP 118/95
[2020-12-22] MEDS: LITHIUM CARBONATE 600 MG CAPSULE PO SCH (20:08)
[2020-12-22] MEDS: MELATONIN 5 MG TABLET PO SCH (20:08)
[2020-12-22] MEDS: QUEtiapine FUMARATE 300 MG TABLET PO SCH (20:09)
[2020-12-23] MEDS: FOLIC ACID 1 MG TABLET PO SCH (08:39)
[2020-12-23] MEDS: THIAMINE 100 MG TABLET PO SCH ×2 (08:39→16:20)
[2020-12-23] MEDS: QUEtiapine FUMARATE 25 MG TABLET PO SCH ×3 (08:39→16:20)
[2020-12-23] MEDS: LITHIUM CARBONATE 300 MG CAPSULE PO SCH (08:39)
[2020-12-23] MEDS: MULTIVITAMINS WITH MINERALS, THERAPEUTIC TABLET PO SCH (08:40)
[2020-12-23] MEDS: NALTREXONE HCL 50 MG TABLET PO SCH (08:40)
[2020-12-23] MEDS: SERTRALINE HCL 100 MG TABLET PO SCH (08:40)
[2020-12-23] MEDS: OMEGA-3/DHA/EPA/FISH OIL 1,000 MG CAPSULE PO SCH (08:40)
[2020-12-23 08:50] VITALS: BP 128/66
[2020-12-23 16:00] VITALS: BP 166/95
[2020-12-23] MEDS: MELATONIN 5 MG TABLET PO SCH (20:35)
[2020-12-23] MEDS: QUEtiapine FUMARATE 300 MG TABLET PO SCH (20:35)
[2020-12-23] MEDS: LITHIUM CARBONATE 600 MG CAPSULE PO SCH (20:35)
[2020-12-24] MEDS: QUEtiapine FUMARATE 25 MG TABLET PO SCH ×3 (08:28→16:41)
[2020-12-24] MEDS: MULTIVITAMINS WITH MINERALS, THERAPEUTIC TABLET PO SCH (08:28)
[2020-12-24] MEDS: NALTREXONE HCL 50 MG TABLET PO SCH (08:28)
[2020-12-24] MEDS: LITHIUM CARBONATE 300 MG CAPSULE PO SCH (08:28)
[2020-12-24] MEDS: FOLIC ACID 1 MG TABLET PO SCH (08:28)
[2020-12-24] MEDS: SERTRALINE HCL 100 MG TABLET PO SCH (08:28)
[2020-12-24] MEDS: THIAMINE 100 MG TABLET PO SCH (08:28)
[2020-12-24] MEDS: OMEGA-3/DHA/EPA/FISH OIL 1,000 MG CAPSULE PO SCH (08:28)
[2020-12-24 08:51] VITALS: BP 133/62
[2020-12-24 16:00] VITALS: BP 132/72
[2020-12-24] MEDS ORDERED: QUET300T19 PO (16:20)
[2020-12-24] MEDS ORDERED: QUET25TA36 PO (16:20)
[2020-12-24] MEDS ORDERED: SERT-440 PO (16:20)
[2020-12-24] MEDS ORDERED: LITH300C3 PO (16:20)
[2020-12-24] MEDS ORDERED: OMEG-135 PO (16:20)
[2020-12-24] MEDS ORDERED: NALT50TA PO (16:20)
[2020-12-24] MEDS ORDERED: MELA5TAB40 PO (16:20)
== END 2020-12-24 17:00 | disposition home or self-care (01) | DRG 750 ==
LOC: EMS 21:03 → 3EI 12-14 07:15
PROVIDERS: ADMIT Psychiatry & Neurology Psychiatry; ATTEND Psychiatry & Neurology Psychiatry
DX: F25.1 Schizoaffective disorder, depressive type (principal); R45.851 Suicidal ideations; F13.20 Sedative, hypnotic or anxiolytic dependence, uncomplicated; Z59.00 Homelessness unspecified; E03.9 Hypothyroidism, unspecified; F17.210 Nicotine dependence, cigarettes, uncomplicated; F41.0 Panic disorder [episodic paroxysmal anxiety]; T43.4X6A Underdosing of butyrophenone and thiothixene neuroleptics, initial encounter; J44.9 Chronic obstructive pulmonary disease, unspecified; F12.20 Cannabis dependence, uncomplicated; F15.20 Other stimulant dependence, uncomplicated; Z20.822 Contact with and (suspected) exposure to COVID-19; T44.3X6A Underdosing of other parasympatholytics [anticholinergics and antimuscarinics] and spasmolytics, initial encounter; Y92.89 Other specified places as the place of occurrence of the external cause; Z55.9 Problems related to education and literacy, unspecified; Z59.9 Problem related to housing and economic circumstances, unspecified; Z63.9 Problem related to primary support group, unspecified; Z65.3 Problems related to other legal circumstances; Z79.899 Other long term (current) drug therapy; Z91.51 Personal history of suicidal behavior
CPT/HCPCS: 80053; 80061; 80178; 81003; 83036; 84439; 84443; 85025; 86592; 90686; 99285; G0480; Q9967

== ENCOUNTER 2022-01-06 21:19 | Inpatient (IN) | payer MEDICAID ==
[~2022-01-06] VITALS: Ht 167.6 cm; Wt 106.4 kg
[~2022-01-06 21:19] MED LIST changes: -BENZ1TAB10 PO; -HALO10 PO; +MELA5TAB40 PO; +NALT50TA PO; +OMEG-135 PO; +QUET25TA36 PO; +QUET300T19 PO; +SERT-440 PO
[2022-01-07] VITALS (8 sets, daily range): BP systolic 119–144; BP diastolic 68–95
[2022-01-07] MEDS ORDERED: HALOPERIDOL 10 MG TABLET PO PRN (05:30)
[2022-01-07] MEDS ORDERED: LORazepam 2 MG TABLET PO PRN ×2 (05:30→11:30)
[2022-01-07] MEDS ORDERED: INFLUENZA VIRUS VACCINE QVS 2022-23 (6MO+)/PF 60 MCG/0.5 ML SYRINGE IM. ONE (05:45)
[2022-01-07] MEDS ORDERED: PNEUMOCOCCAL VACCINE POLYVALENT 0.5 ML VIAL [PPSV23] IM. ONE (05:45)
[2022-01-07] MEDS ORDERED: LEVO100 PO (10:19)
[2022-01-07] MEDS ORDERED: SERT-162 PO (10:24)
[2022-01-07] MEDS ORDERED: QUET300T2 PO (10:24)
[2022-01-07] MEDS ORDERED: LISI-894 PO (10:24)
[2022-01-07] MEDS ORDERED: LITH300CRT PO (10:24)
[2022-01-07] MEDS ORDERED: GuaiFENesin/D-METHORPHAN [SUGAR-FREE] 200-20MG/10 ML SYRUP UDCUP PO PRN ×2 (11:30→14:30)
[2022-01-07] MEDS ORDERED: CYANOCOBALAMIN 1,000 MCG/ML VIAL IM ONE (11:30)
[2022-01-07] MEDS ORDERED: LOPERAMIDE HCL 2 MG CAPSULE PO PRN ×2 (11:30→14:30)
[2022-01-07] MEDS ORDERED: HydrOXYzine PAMOATE 50 MG CAPSULE PO PRN (11:30)
[2022-01-07] MEDS: OMEGA-3/DHA/EPA/FISH OIL 1,000 MG CAPSULE PO SCH (12:38)
[2022-01-07] MEDS: MULTIVITAMINS WITH MINERALS, THERAPEUTIC TABLET PO SCH (12:38)
[2022-01-07] MEDS: FOLIC ACID 1 MG TABLET PO SCH (12:38)
[2022-01-07] MEDS ORDERED: MAGNESIUM HYDROXIDE SUSPENSION 30 ML UDCUP PO PRN ×2 (13:45→14:30)
[2022-01-07] MEDS ORDERED: DOCUSATE SODIUM 100 MG CAPSULE PO PRN (14:30)
[2022-01-07] MEDS ORDERED: ONDANSETRON HCL 4 MG TABLET PO PRN (14:30)
[2022-01-07] MEDS ORDERED: MAG HYDROX/AL HYDROX/SIMETH ES 30 ML SUSPENSION UDCUP PO PRN (14:30)
[2022-01-07] MEDS ORDERED: CloNIDine HCL 0.1 MG TABLET PO PRN (14:30)
[2022-01-07] MEDS ORDERED: ACETAMINOPHEN 325 MG TABLET PO PRN (14:30)
[2022-01-07] MEDS ORDERED: PETROLATUM,WHITE 28 GM JELLY TP PRN (14:30)
[2022-01-07] MEDS ORDERED: ALBUTEROL SULFATE HFA 90 MCG/PUFF 8 GM INHALER IH PRN (14:30)
[2022-01-07] MEDS ORDERED: IBUPROFEN 400 MG TABLET PO PRN (14:30)
[2022-01-07] MEDS ORDERED: NICOTINE 14 MG/24 HOUR PATCH TD PRN (14:30)
[2022-01-07] MEDS: LITHIUM CARBONATE 450 MG ER TABLET PO SCH (16:55)
[2022-01-07] MEDS: THIAMINE 100 MG TABLET PO SCH (16:55)
[2022-01-07] MEDS: QUEtiapine FUMARATE 300 MG TABLET PO SCH (20:03)
[2022-01-08] VITALS (8 sets, daily range): BP systolic 100–136; BP diastolic 58–88
[2022-01-08] MEDS: LEVOTHYROXINE SODIUM 100 MCG TABLET PO SCH (06:44)
[2022-01-08] MEDS ORDERED: LORazepam 2 MG TABLET PO PRN (07:00)
[2022-01-08] MEDS: MULTIVITAMINS WITH MINERALS, THERAPEUTIC TABLET PO SCH (09:23)
[2022-01-08] MEDS: LITHIUM CARBONATE 450 MG ER TABLET PO SCH ×3 (09:23→17:12)
[2022-01-08] MEDS: LORazepam 2 MG TABLET PO SCH ×4 (09:23→21:39)
[2022-01-08] MEDS: OMEGA-3/DHA/EPA/FISH OIL 1,000 MG CAPSULE PO SCH (09:23)
[2022-01-08] MEDS: THIAMINE 100 MG TABLET PO SCH ×2 (09:23→17:12)
[2022-01-08] MEDS: FOLIC ACID 1 MG TABLET PO SCH (09:24)
[2022-01-08] MEDS: LISINOPRIL 20 MG TABLET PO SCH (09:24)
[2022-01-08] MEDS: SERTRALINE HCL 100 MG TABLET PO SCH (09:24)
[2022-01-08] MEDS: QUEtiapine FUMARATE 300 MG TABLET PO SCH (21:39)
[2022-01-09] MEDS: LEVOTHYROXINE SODIUM 100 MCG TABLET PO SCH (06:10)
[2022-01-09 07:56] LABS: GLUCOMETER DEV NAME(LOC) POC.BV
[2022-01-09 08:39] VITALS: BP 132/74
[2022-01-09] MEDS: MULTIVITAMINS WITH MINERALS, THERAPEUTIC TABLET PO SCH (08:58)
[2022-01-09] MEDS: LISINOPRIL 20 MG TABLET PO SCH (08:58)
[2022-01-09] MEDS: LITHIUM CARBONATE 450 MG ER TABLET PO SCH ×3 (08:59→16:26)
[2022-01-09] MEDS: FOLIC ACID 1 MG TABLET PO SCH (08:59)
[2022-01-09] MEDS: LORazepam 2 MG TABLET PO SCH ×4 (08:59→20:21)
[2022-01-09] MEDS: SERTRALINE HCL 100 MG TABLET PO SCH (08:59)
[2022-01-09] MEDS: OMEGA-3/DHA/EPA/FISH OIL 1,000 MG CAPSULE PO SCH (08:59)
[2022-01-09] MEDS: THIAMINE 100 MG TABLET PO SCH ×2 (09:03→16:26)
[2022-01-09 17:13] VITALS: BP 115/64
[2022-01-09 20:03] VITALS: BP 120/65
[2022-01-09 20:05] VITALS: BP 120/65
[2022-01-09] MEDS: QUEtiapine FUMARATE 300 MG TABLET PO SCH (20:17)
[2022-01-10] MEDS: LEVOTHYROXINE SODIUM 100 MCG TABLET PO SCH (06:37)
[2022-01-10] MEDS ORDERED: LORazepam 1 MG TABLET PO PRN (07:00)
[2022-01-10 08:28] VITALS: BP 136/73
[2022-01-10] MEDS: OMEGA-3/DHA/EPA/FISH OIL 1,000 MG CAPSULE PO SCH (09:08)
[2022-01-10] MEDS: LORazepam 1 MG TABLET PO SCH ×4 (09:08→20:30)
[2022-01-10] MEDS: THIAMINE 100 MG TABLET PO SCH ×2 (09:08→16:34)
[2022-01-10] MEDS: LISINOPRIL 20 MG TABLET PO SCH (09:08)
[2022-01-10] MEDS: SERTRALINE HCL 100 MG TABLET PO SCH (09:08)
[2022-01-10] MEDS: MULTIVITAMINS WITH MINERALS, THERAPEUTIC TABLET PO SCH (09:08)
[2022-01-10] MEDS: LITHIUM CARBONATE 450 MG ER TABLET PO SCH ×3 (09:08→16:34)
[2022-01-10] MEDS: FOLIC ACID 1 MG TABLET PO SCH (09:08)
[2022-01-10 12:18] VITALS: BP 136/75
[2022-01-10] MEDS: QUEtiapine FUMARATE 300 MG TABLET PO SCH (20:30)
[2022-01-10 20:56] VITALS: BP 139/70
[2022-01-11] MEDS: LEVOTHYROXINE SODIUM 100 MCG TABLET PO SCH (06:56)
[2022-01-11] MEDS ORDERED: LORazepam 1 MG TABLET PO PRN (07:00)
[2022-01-11 08:10] VITALS: BP 123/74
[2022-01-11 08:45] VITALS: BP 123/74
[2022-01-11] MEDS: THIAMINE 100 MG TABLET PO SCH ×2 (08:53→16:36)
[2022-01-11] MEDS: OMEGA-3/DHA/EPA/FISH OIL 1,000 MG CAPSULE PO SCH (08:53)
[2022-01-11] MEDS: MULTIVITAMINS WITH MINERALS, THERAPEUTIC TABLET PO SCH (08:53)
[2022-01-11] MEDS: LITHIUM CARBONATE 450 MG ER TABLET PO SCH ×3 (08:53→16:37)
[2022-01-11] MEDS: FOLIC ACID 1 MG TABLET PO SCH (08:53)
[2022-01-11] MEDS: SERTRALINE HCL 100 MG TABLET PO SCH (08:54)
[2022-01-11] MEDS: LISINOPRIL 20 MG TABLET PO SCH (08:54)
[2022-01-11 16:26] LABS: GLUCOMETER DEV NAME(LOC) POC.BV
[2022-01-11 20:18] VITALS: BP 125/83
[2022-01-11] MEDS: QUEtiapine FUMARATE 300 MG TABLET PO SCH (20:32)
[2022-01-11 20:42] VITALS: BP 125/83
[2022-01-12] MEDS: LEVOTHYROXINE SODIUM 100 MCG TABLET PO SCH (06:26)
[2022-01-12 09:13] VITALS: BP 135/72
[2022-01-12 09:15] VITALS: BP 135/72
[2022-01-12] MEDS: MULTIVITAMINS WITH MINERALS, THERAPEUTIC TABLET PO SCH (09:42)
[2022-01-12] MEDS: OMEGA-3/DHA/EPA/FISH OIL 1,000 MG CAPSULE PO SCH (09:42)
[2022-01-12] MEDS: THIAMINE 100 MG TABLET PO SCH ×2 (09:42→16:32)
[2022-01-12] MEDS: LISINOPRIL 20 MG TABLET PO SCH (09:42)
[2022-01-12] MEDS: SERTRALINE HCL 100 MG TABLET PO SCH (09:42)
[2022-01-12] MEDS: FOLIC ACID 1 MG TABLET PO SCH (09:42)
[2022-01-12] MEDS: LITHIUM CARBONATE 450 MG ER TABLET PO SCH ×3 (09:42→16:32)
[2022-01-12 15:26] LABS: GLUCOMETER DEV NAME(LOC) POC.BV
[2022-01-12 16:51] LABS: GLUCOMETER DEV NAME(LOC) POC.BV
[2022-01-12] MEDS: QUEtiapine FUMARATE 300 MG TABLET PO SCH (20:34)
[2022-01-12 20:36] VITALS: BP 123/68
[2022-01-13] MEDS: LEVOTHYROXINE SODIUM 100 MCG TABLET PO SCH (06:40)
[2022-01-13 08:59] VITALS: BP 116/66
[2022-01-13] MEDS: LISINOPRIL 20 MG TABLET PO SCH (09:12)
[2022-01-13] MEDS: OMEGA-3/DHA/EPA/FISH OIL 1,000 MG CAPSULE PO SCH (09:12)
[2022-01-13] MEDS: THIAMINE 100 MG TABLET PO SCH ×2 (09:12→16:46)
[2022-01-13] MEDS: MULTIVITAMINS WITH MINERALS, THERAPEUTIC TABLET PO SCH (09:12)
[2022-01-13] MEDS: LITHIUM CARBONATE 450 MG ER TABLET PO SCH ×3 (09:12→16:46)
[2022-01-13] MEDS: FOLIC ACID 1 MG TABLET PO SCH (09:13)
[2022-01-13] MEDS: SERTRALINE HCL 100 MG TABLET PO SCH (09:13)
[2022-01-13 20:00] VITALS: BP 132/85
[2022-01-13] MEDS: QUEtiapine FUMARATE 300 MG TABLET PO SCH (20:30)
[2022-01-14] MEDS: LEVOTHYROXINE SODIUM 100 MCG TABLET PO SCH (06:18)
[2022-01-14 08:14] VITALS: BP 118/72
[2022-01-14] MEDS: LITHIUM CARBONATE 450 MG ER TABLET PO SCH ×3 (09:36→16:48)
[2022-01-14] MEDS: LISINOPRIL 20 MG TABLET PO SCH (09:36)
[2022-01-14] MEDS: MULTIVITAMINS WITH MINERALS, THERAPEUTIC TABLET PO SCH (09:36)
[2022-01-14] MEDS: SERTRALINE HCL 100 MG TABLET PO SCH (09:36)
[2022-01-14] MEDS: THIAMINE 100 MG TABLET PO SCH ×2 (09:36→16:48)
[2022-01-14] MEDS: FOLIC ACID 1 MG TABLET PO SCH (09:36)
[2022-01-14] MEDS: OMEGA-3/DHA/EPA/FISH OIL 1,000 MG CAPSULE PO SCH (09:36)
[2022-01-14] MEDS: QUEtiapine FUMARATE 300 MG TABLET PO SCH (20:31)
[2022-01-14 21:02] VITALS: BP 125/73
[2022-01-15] MEDS: LEVOTHYROXINE SODIUM 100 MCG TABLET PO SCH (06:44)
[2022-01-15 09:36] VITALS: BP 119/64
[2022-01-15] MEDS: SERTRALINE HCL 100 MG TABLET PO SCH (09:38)
[2022-01-15] MEDS: LITHIUM CARBONATE 450 MG ER TABLET PO SCH ×3 (09:38→16:25)
[2022-01-15] MEDS: FOLIC ACID 1 MG TABLET PO SCH (09:38)
[2022-01-15] MEDS: LISINOPRIL 20 MG TABLET PO SCH (09:38)
[2022-01-15] MEDS: OMEGA-3/DHA/EPA/FISH OIL 1,000 MG CAPSULE PO SCH (09:38)
[2022-01-15] MEDS: MULTIVITAMINS WITH MINERALS, THERAPEUTIC TABLET PO SCH (09:38)
[2022-01-15] MEDS: THIAMINE 100 MG TABLET PO SCH ×2 (09:39→16:26)
[2022-01-15 20:10] VITALS: BP 136/85
[2022-01-15] MEDS: QUEtiapine FUMARATE 300 MG TABLET PO SCH (20:35)
[2022-01-16] MEDS: LEVOTHYROXINE SODIUM 100 MCG TABLET PO SCH (06:21)
[2022-01-16 08:07] VITALS: BP 124/70
[2022-01-16] MEDS: MULTIVITAMINS WITH MINERALS, THERAPEUTIC TABLET PO SCH (11:08)
[2022-01-16] MEDS: LITHIUM CARBONATE 450 MG ER TABLET PO SCH ×3 (11:08→18:17)
[2022-01-16] MEDS: FOLIC ACID 1 MG TABLET PO SCH (11:08)
[2022-01-16] MEDS: SERTRALINE HCL 100 MG TABLET PO SCH (11:08)
[2022-01-16] MEDS: OMEGA-3/DHA/EPA/FISH OIL 1,000 MG CAPSULE PO SCH (11:08)
[2022-01-16] MEDS: LISINOPRIL 20 MG TABLET PO SCH (11:08)
[2022-01-16] MEDS: THIAMINE 100 MG TABLET PO SCH ×2 (11:08→16:44)
[2022-01-16] MEDS ORDERED: LITH450CRT PO (18:55)
[2022-01-16 20:27] VITALS: BP 117/71
[2022-01-16] MEDS: QUEtiapine FUMARATE 300 MG TABLET PO SCH (20:27)
[2022-01-17] MEDS: ZOLPIDEM TARTRATE 10 MG TABLET PO PRN ×2 (01:03→01:04)
[2022-01-17] MEDS ORDERED: QUET300T2 PO (04:55)
[2022-01-17] MEDS ORDERED: OMEG-135 PO (04:55)
[2022-01-17] MEDS ORDERED: LEVO100 PO (04:55)
[2022-01-17] MEDS ORDERED: SERT-162 PO (04:55)
[2022-01-17] MEDS ORDERED: LITH450CRT PO (04:55)
[2022-01-17] MEDS ORDERED: LISI-894 PO (04:55)
[2022-01-17] MEDS: LEVOTHYROXINE SODIUM 100 MCG TABLET PO SCH (06:38)
== END 2022-01-17 09:31 | disposition home or self-care (01) | DRG 750 ==
LOC: B2S 01-07 01:30
PROVIDERS: ADMIT Psychiatry & Neurology Psychiatry; ATTEND Psychiatry & Neurology Psychiatry
DX: F25.0 Schizoaffective disorder, bipolar type (principal); E11.9 Type 2 diabetes mellitus without complications; R45.851 Suicidal ideations; E03.9 Hypothyroidism, unspecified; Z20.822 Contact with and (suspected) exposure to COVID-19; E78.5 Hyperlipidemia, unspecified; F10.20 Alcohol dependence, uncomplicated; F14.10 Cocaine abuse, uncomplicated; I10 Essential (primary) hypertension; Y90.6 Blood alcohol level of 120-199 mg/100 ml; Z79.899 Other long term (current) drug therapy; Z81.8 Family history of other mental and behavioral disorders; Z91.51 Personal history of suicidal behavior
CPT/HCPCS: 80178; J3420

== ENCOUNTER 2023-10-05 22:20 | Inpatient (IN) | payer MEDICAID, OTHER ==
[~2023-10-05] VITALS: Ht 167.6 cm; Wt 104.8 kg
[~2023-10-05 22:20] MED LIST changes: +LEVO100 PO; +LISI-894 PO; -LITH300C3 PO; +LITH450T25 PO; -LITH600C5 PO; -MELA5TAB40 PO; -NALT50TA PO; -QUET25TA36 PO; -QUET300T19 PO; +QUET300T2 PO; +SERT-162 PO; -SERT-440 PO
[2023-10-06 00:50] LABS: COVID AG,FIA SOURCE NASAL SWAB
[2023-10-06 01:04] LABS: BASOPHILS % (AUTO) 0.6 % (0.0-2.0); EOSINOPHILS % (AUTO) 1.8 % (1.0-6.0); HEMATOCRIT 40.5 % (41-53); LYMPHOCYTES # (AUTO) 2.7 K/uL (1.0-4.8); LYMPHOCYTES % (AUTO) 26.7 % (22.0-44.0); MEAN CORPUSCULAR HEMOGLOBIN 25.2 pg (26.0-34.0); MEAN CORPUSCULAR HGB CONC 32.1 G/dL (31.0-37.0); MEAN CORPUSCULAR VOLUME 79 fL (80-100); MONOCYTES # (AUTO) 0.9 K/uL (0.1-1.0); MONOCYTES % (AUTO) 8.5 % (2.0-9.0); NEUTROPHILS # (AUTO) 6.4 K/uL (1.8-7.7); NEUTROPHILS % (AUTO) 62.4 % (40.0-70.0); PLATELET COUNT (AUTO) 425 K/uL (150-450); RED BLOOD CELL COUNT(AUTO) 5.15 MIL/uL (4.50-5.90); RED CELL DISTRIBUTION WIDTH 17.8 % (11.5-14.5); WHITE BLOOD COUNT (AUTO) 10.2 K/uL (4.5-11.0)
[2023-10-06 01:08] LABS: ANION GAP 12 mmol/L (8-16); CALCIUM, TOTAL 8.8 mg/dL (8.8-10.5); CARBON DIOXIDE 24 mmol/L (22-29); CHLORIDE 102 mmol/L (98-107); CREATININE 1.15 mg/dL (0.60-1.30); GLOMERULAR FILTR. RATE CALC > 60 mL/min (>60); GLUCOSE,RANDOM 83 mg/dL (70-110); SARS-COV2 (COVID) ANTIGEN,FIA Negative (Negative); SODIUM SERUM 138 mmol/L (136-145); UREA NITROGEN, BLOOD 8 mg/dL (7-18)
[2023-10-06 01:15] LABS: ALCOHOL, BLOOD (SERUM) 29 mg/dL (0-10)
[2023-10-06] MEDS ORDERED: ZOLPIDEM TARTRATE 10 MG TABLET PO PRN (05:00)
[2023-10-06] MEDS ORDERED: HALOPERIDOL 5 MG TABLET PO PRN (05:00)
[2023-10-06] MEDS ORDERED: LORazepam 2 MG TABLET PO PRN (05:00)
[2023-10-06 05:16] VITALS: BP 118/66; PULSE 78; RESP 18; TEMP 97.6; O2SAT 99
[2023-10-06 05:18] VITALS: BP 118/66; PULSE 78; RESP 18; TEMP 97.6; O2SAT 99
[2023-10-06 08:39] VITALS: BP 121/76; PULSE 84; RESP 17; TEMP 97.4; O2SAT 96
[2023-10-06] MEDS: QUEtiapine FUMARATE 200 MG TABLET PO SCH (13:14)
[2023-10-06] MEDS: SERTRALINE HCL 100 MG TABLET PO SCH (13:14)
[2023-10-06] MEDS ORDERED: DOCUSATE SODIUM 100 MG CAPSULE PO PRN (14:30)
[2023-10-06] MEDS ORDERED: CloNIDine HCL 0.1 MG TABLET PO PRN (14:30)
[2023-10-06] MEDS ORDERED: GuaiFENesin/D-METHORPHAN [SUGAR-FREE] 200-20MG/10 ML SYRUP UDCUP PO PRN (14:30)
[2023-10-06] MEDS ORDERED: ACETAMINOPHEN 325 MG TABLET PO PRN (14:30)
[2023-10-06] MEDS ORDERED: IBUPROFEN 400 MG TABLET PO PRN (14:30)
[2023-10-06] MEDS ORDERED: MAG HYDROX/ALUMINUM HYD/SIMETH ES 30 ML SUSPENSION UDCUP PO PRN (14:30)
[2023-10-06] MEDS ORDERED: MAGNESIUM HYDROXIDE SUSPENSION 30 ML UDCUP PO PRN (14:30)
[2023-10-06] MEDS ORDERED: ALBUTEROL SULFATE HFA 90 MCG/PUFF 8 GM INHALER IH PRN (14:30)
[2023-10-06] MEDS ORDERED: ONDANSETRON 4 MG TABLET PO PRN (14:30)
[2023-10-06] MEDS ORDERED: PETROLATUM,WHITE 28 GM JELLY TP PRN (14:30)
[2023-10-06] MEDS ORDERED: LOPERAMIDE HCL 2 MG CAPSULE PO PRN (14:30)
[2023-10-06] MEDS ORDERED: NICOTINE 14 MG/24 HOUR PATCH TD PRN (14:30)
[2023-10-06 20:32] VITALS: BP 120/69; PULSE 82; RESP 16; TEMP 96.7; O2SAT 96
[2023-10-07] MEDS: LEVOTHYROXINE SODIUM 100 MCG TABLET PO SCH (06:28)
[2023-10-07] MEDS ORDERED: LEVOTHYROXINE SODIUM 100 MCG TABLET PO SCH (06:30)
[2023-10-07 08:21] LABS: HEMOGLOBIN A1C 5.8 % (3.8-5.6)
[2023-10-07 08:34] LABS: CHOL/HDL RATIO 4.6 (4.2-7.3); THYROID STIMULATING HORMONE 1.98 uIU/mL (0.36-3.74)
[2023-10-07] MEDS: OMEGA-3/DHA/EPA/FISH OIL 1,000 MG CAPSULE PO SCH (08:37)
[2023-10-07] MEDS: LISINOPRIL 20 MG TABLET PO SCH (08:37)
[2023-10-07 08:47] VITALS: RESP 17
[2023-10-07 09:01] LABS: APPEARANCE,URINE TURBID (CLEAR); BILIRUBIN,URINE NEGATIVE (NEGATIVE); COLOR,URINE YELLOW (YELLOW); GLUCOSE, URINE (UA) NEGATIVE (NEGATIVE); LEUKOCYTE ESTERASE ,URINE NEGATIVE (NEGATIVE); NITRATE,URINE NEGATIVE (NEGATIVE); OCCULT BLOOD,URINE NEGATIVE (NEGATIVE); PH,URINE 5.5 (5.0-8.0); PROTEIN,URINE TRACE mg/dL (NEGATIVE); SPECIFIC GRAVITIY, URINE 1.024 (1.003-1.030); UROBILINOGEN,URINE <=1.0 mg/dL (<=1.0)
[2023-10-07 09:12] LABS: ALCOHOL, URINE DRUG SCREEN NEGATIVE (NEGATIVE); AMPHET/METH SCREEN,URINE NEGATIVE (NEGATIVE); BENZODIAZEPINES SCREEN,URINE NEGATIVE (NEGATIVE); CANNABINOID SCREEN,URINE NEGATIVE (NEGATIVE); COCAINE SCREEN,URINE NEGATIVE (NEGATIVE); METHADONE SCREEN, URINE NEGATIVE (NEGATIVE); OPIATE SCREEN,URINE POSITIVE (NEGATIVE); PHENCYCLIDINE SCREEN,URINE NEGATIVE (NEGATIVE)
[2023-10-07 09:29] LABS: BARBITURATE SCREEN, URINE NEGATIVE (NEGATIVE)
[2023-10-07 09:33] LABS: BACTERIA,URINE None Seen /HPF (None Seen); RBC,URINE None Seen /HPF (0-2); WBC,URINE None Seen /HPF (0-5)
[2023-10-07 09:39] LABS: AMORPHOUS SEDIMENT,UR Many /LPF (None Seen)
[2023-10-07 09:44] LABS: PH,URINE DRUG SCREEN 5.5 (5.0-8.0)
[2023-10-07 20:43] VITALS: BP 116/58; PULSE 72; RESP 17; TEMP 97.3; O2SAT 95
[2023-10-08 08:19] VITALS: BP 119/62; PULSE 76; RESP 17; TEMP 98.2; O2SAT 96
[2023-10-08 20:53] VITALS: BP 111/60; PULSE 72; RESP 18; TEMP 97.3; O2SAT 95
[2023-10-09 08:13] VITALS: BP 128/63; PULSE 65; RESP 17; TEMP 97.8; O2SAT 95
[2023-10-09 20:00] VITALS: BP 110/68; PULSE 65; RESP 16; TEMP 97.5; O2SAT 96
[2023-10-10 08:18] VITALS: BP 123/63; PULSE 68; RESP 19; TEMP 96.5; O2SAT 95
[2023-10-10 20:25] VITALS: BP 109/65; PULSE 61; RESP 18; TEMP 97.4; O2SAT 97
[2023-10-11 08:22] VITALS: BP 116/62; PULSE 61; RESP 18; TEMP 97.7; O2SAT 98
[2023-10-11 20:38] VITALS: BP 113/60; PULSE 74; RESP 17; TEMP 97; O2SAT 95
[2023-10-12 08:32] VITALS: BP 110/60; PULSE 72; RESP 18; TEMP 96.7; O2SAT 95
[2023-10-12 20:37] VITALS: BP 121/67; PULSE 77; RESP 18; TEMP 97.6
[2023-10-13 08:21] VITALS: BP 111/69; PULSE 73; RESP 18; TEMP 98.6; O2SAT 96
[2023-10-13 20:26] VITALS: BP 104/62; PULSE 77; RESP 18; TEMP 98; O2SAT 96
[2023-10-14 08:32] VITALS: BP 108/75; PULSE 81; RESP 18; TEMP 98; O2SAT 100
[2023-10-14 20:34] VITALS: BP 130/82; PULSE 100; RESP 18; TEMP 98; O2SAT 100
[2023-10-15 08:09] VITALS: BP 112/62; PULSE 79; RESP 17; TEMP 97.7; O2SAT 97
[2023-10-15 20:00] VITALS: BP 111/72; PULSE 92; RESP 16; TEMP 97.9; O2SAT 98
[2023-10-16 08:48] VITALS: BP 126/76; PULSE 90; RESP 17; TEMP 98; O2SAT 98
[2023-10-16] MEDS ORDERED: OMEG100033 PO (20:20)
[2023-10-16] MEDS ORDERED: SERT-440 PO (20:20)
[2023-10-16] MEDS ORDERED: LEVO100 PO (20:20)
[2023-10-16] MEDS ORDERED: LISI-894 PO (20:20)
[2023-10-16] MEDS ORDERED: QUET200T30 PO (20:20)
[2023-10-16 20:41] VITALS: BP 119/74; PULSE 91; RESP 17; TEMP 98.7; O2SAT 98
== END 2023-10-17 08:05 | disposition home or self-care (01) | DRG 750 ==
LOC: EMS 22:20 → B2S 10-06 04:23
PROVIDERS: ADMIT Psychiatry & Neurology Psychiatry; ATTEND Psychiatry & Neurology Psychiatry
PROC: GZ52ZZZ Individual Psychotherapy, Cognitive (ICD-10-PCS; principal; 2023-10-06)
PROC: GZHZZZZ Group Psychotherapy (ICD-10-PCS; 2023-10-06)
DX: F25.1 Schizoaffective disorder, depressive type (principal); R45.851 Suicidal ideations; Z91.148 Patient's other noncompliance with medication regimen for other reason; E03.9 Hypothyroidism, unspecified; Z20.822 Contact with and (suspected) exposure to COVID-19; I10 Essential (primary) hypertension; E78.5 Hyperlipidemia, unspecified; F14.10 Cocaine abuse, uncomplicated; F10.10 Alcohol abuse, uncomplicated; Y90.9 Presence of alcohol in blood, level not specified; Z79.899 Other long term (current) drug therapy; Z91.51 Personal history of suicidal behavior
CPT/HCPCS: 80048; 80061; 80307; 81001; 83036; 84443; 85025; 87481; 99285; G0480

== ENCOUNTER 2024-10-25 01:02 | Inpatient (IN) | payer MEDICAID, OTHER ==
[~2024-10-25] VITALS: Ht 167.6 cm; Wt 115.7 kg
[~2024-10-25 01:02] MED LIST changes: -LITH450T25 PO; -OMEG-135 PO; +OMEG100033 PO; +QUET200T30 PO; -QUET300T2 PO; -SERT-162 PO; +SERT-440 PO
[2024-10-25 02:20] LABS: COVID AG,FIA SOURCE NASAL SWAB
[2024-10-25 02:24] LABS: PLATELET COUNT (AUTO) 509 K/uL (150-450); RED BLOOD CELL COUNT(AUTO) 5.40 MIL/uL (4.50-5.90); RED CELL DISTRIBUTION WIDTH 17.6 % (11.5-14.5); WHITE BLOOD COUNT (AUTO) 10.5 K/uL (4.5-11.0)
[2024-10-25 02:35] LABS: CALCIUM, TOTAL 8.9 mg/dL (8.8-10.5); CREATININE 0.69 mg/dL (0.60-1.30); GLOMERULAR FILTR. RATE CALC > 60 mL/min (>60); GLUCOSE,RANDOM 102 mg/dL (70-110); SODIUM SERUM 139 mmol/L (136-145); UREA NITROGEN, BLOOD 7 mg/dL (7-18)
[2024-10-25] MEDS: LORazepam 2 MG/ML VIAL IM ONE (02:40)
[2024-10-25 02:50] LABS: SARS-COV2 (COVID) ANTIGEN,FIA Negative (Negative)
[2024-10-25 16:30] LABS: APPEARANCE,URINE CLEAR (CLEAR); GLUCOSE, URINE (UA) NEGATIVE (NEGATIVE); LEUKOCYTE ESTERASE ,URINE NEGATIVE (NEGATIVE); NITRATE,URINE NEGATIVE (NEGATIVE); OCCULT BLOOD,URINE NEGATIVE (NEGATIVE); PH,URINE DRUG SCREEN 5.5 (5.0-8.0); SPECIFIC GRAVITIY, URINE 1.017 (1.003-1.030)
[2024-10-25 16:36] LABS: ALCOHOL, URINE DRUG SCREEN POSITIVE (NEGATIVE); AMPHET/METH SCREEN,URINE NEGATIVE (NEGATIVE); BARBITURATE SCREEN, URINE NEGATIVE (NEGATIVE); CANNABINOID SCREEN,URINE NEGATIVE (NEGATIVE); COCAINE SCREEN,URINE POSITIVE (NEGATIVE); METHADONE SCREEN, URINE NEGATIVE (NEGATIVE)
[2024-10-25 19:07] VITALS: BP 126/84; PULSE 90; RESP 18; TEMP 99.2; O2SAT 97
[2024-10-25 20:38] VITALS: BP 112/73; PULSE 92; RESP 17; TEMP 97.8; O2SAT 97
[2024-10-25] MEDS: ZOLPIDEM TARTRATE 10 MG TABLET PO PRN (20:58)
[2024-10-26] MEDS ORDERED: ONDANSETRON 4 MG TABLET PO PRN (08:00)
[2024-10-26] MEDS ORDERED: PETROLATUM,WHITE 28 GM JELLY TP PRN (08:00)
[2024-10-26] MEDS ORDERED: ALBUTEROL SULFATE HFA 90 MCG/PUFF 8 GM INHALER IH PRN (08:00)
[2024-10-26] MEDS ORDERED: BACITRACIN 28 GM OINTMENT TP PRN (08:00)
[2024-10-26] MEDS ORDERED: OMEPRAZOLE 20 MG CAPSULE PO PRN (08:00)
[2024-10-26] MEDS ORDERED: MAG HYDROX/ALUMINUM HYD/SIMETH ES 30 ML SUSPENSION UDCUP PO PRN (08:00)
[2024-10-26] MEDS ORDERED: DOCUSATE SODIUM 100 MG CAPSULE PO PRN (08:00)
[2024-10-26] MEDS ORDERED: IBUPROFEN 600 MG TABLET PO PRN (08:00)
[2024-10-26] MEDS ORDERED: LOPERAMIDE HCL 2 MG CAPSULE PO PRN (08:00)
[2024-10-26] MEDS ORDERED: ACETAMINOPHEN 325 MG TABLET PO PRN (08:00)
[2024-10-26] MEDS ORDERED: MAGNESIUM HYDROXIDE SUSPENSION 30 ML UDCUP PO PRN (08:00)
[2024-10-26 08:29] LABS: CHOL/HDL RATIO 4.8 (4.2-7.3); LDL CHOL (CALC.) 117.0 mg/dL (0-130)
[2024-10-26 09:07] VITALS: RESP 17
[2024-10-26 10:23] VITALS: BP 147/86; PULSE 87; RESP 17; TEMP 97.3; O2SAT 96
[2024-10-26] MEDS: OMEGA-3/DHA/EPA/FISH OIL 1,000 MG CAPSULE PO SCH (10:28)
[2024-10-26 20:18] VITALS: BP 143/83; PULSE 71; RESP 16; TEMP 97.1; O2SAT 96
[2024-10-27] MEDS: LEVOTHYROXINE SODIUM 25 MCG TABLET PO SCH (06:24)
[2024-10-27] MEDS ORDERED: LEVOTHYROXINE SODIUM 100 MCG TABLET PO SCH (06:30)
[2024-10-27 08:24] VITALS: BP 113/63; PULSE 68; RESP 17; TEMP 97.8; O2SAT 98
[2024-10-27] MEDS: PALIPERIDONE PALMITATE 234 MG/1.5 ML SYRINGE IM ONE (08:49)
[2024-10-27] MEDS: ZOLPIDEM TARTRATE 10 MG TABLET PO PRN (20:21)
[2024-10-27 20:31] VITALS: BP 119/64; PULSE 73; RESP 18; TEMP 97.8; O2SAT 97
[2024-10-28 09:21] VITALS: BP 111/62; PULSE 78; RESP 17; TEMP 97; O2SAT 96
[2024-10-28] MEDS ORDERED: BENZOCAINE/MENTHOL [CEPACOL] LOZENGE PO PRN (17:30)
[2024-10-28] MEDS: BENZOCAINE/MENTHOL [CEPACOL] LOZENGE PO PRN (17:30)
[2024-10-29] MEDS ORDERED: LEVO25TA9 PO (08:01)
[2024-10-29] MEDS ORDERED: LISI-893 PO (08:01)
== END 2024-10-29 08:15 | disposition home or self-care (01) | DRG 750 ==
LOC: EMS 01:04 → B2S 15:09
PROVIDERS: ADMIT Psychiatry & Neurology Psychiatry; ATTEND Psychiatry & Neurology Psychiatry
DX: F20.9 Schizophrenia, unspecified (principal); R45.851 Suicidal ideations; E03.9 Hypothyroidism, unspecified; E78.5 Hyperlipidemia, unspecified; I10 Essential (primary) hypertension; J44.9 Chronic obstructive pulmonary disease, unspecified; Z20.822 Contact with and (suspected) exposure to COVID-19; E66.01 Morbid (severe) obesity due to excess calories; F41.9 Anxiety disorder, unspecified; G47.00 Insomnia, unspecified; K59.00 Constipation, unspecified; F14.10 Cocaine abuse, uncomplicated; F10.10 Alcohol abuse, uncomplicated; Y90.6 Blood alcohol level of 120-199 mg/100 ml; Z68.41 Body mass index [BMI] 40.0-44.9, adult; Z72.0 Tobacco use
CPT/HCPCS: 80048; 80061; 80307; 81003; 83036; 84436; 84443; 85025; 99291; G0480; J1200; J1630; J2060